=== PATIENT | female | born 1995 | race Caucasian/White ===

== ENCOUNTER → 2019-06-17 | Outpatient (REF) | payer OTHER ==
[2019-06-17 19:07] LABS: APPEARANCE, URINE CLOUDY (CLEAR); BACTERIA, URINE AUTO 3+ (NEGATIVE); BILIRUBIN, URINE AUTO NEGATIVE (NEGATIVE); BLOOD, URINE BLOOD 1+ (NEGATIVE); COLOR, URINE AMBER (YELLOW); GLUCOSE, URINE (UA) AUTO NEGATIVE (NEGATIVE); KETONE, URINE AUTO NEGATIVE (NEGATIVE); LEUKOCYTE ESTERASE, URINE AUTO 2+ (NEGATIVE); MUCUS, URINE SMALL (NEGATIVE); NITRITE, URINE AUTO POSITIVE (NEGATIVE); PROTEIN, URINE AUTO NEGATIVE (NEGATIVE); RBC, URINE AUTO 4 /HPF (0-3); SPECIFIC GRAVITY URINE AUTO 1.016 (1.002-1.035); SQUAMOUS EPITHELIAL CELL UR AU 8 /HPF (0-6); WBC, URINE AUTO 34 /HPF (0-3)
== END ==
LOC: M LAB REF 18:15
PROVIDERS: ATTEND Physician Assistant
DX: N39.0 Urinary tract infection, site not specified (principal)

== ENCOUNTER 2020-09-22 13:29 | Emergency (ER) | payer OTHER ==
[~2020-09-22] VITALS: Ht 162.6 cm; Wt 53.8 kg
[2020-09-22] MEDS ORDERED: IBUPROFEN 600MG TAB PO ONE (14:00)
[2020-09-22 15:10] LABS: BASO # 0.1 10^3/uL (0.0-0.2); BASO % 0.7 % (0.0-1.0); EOS # 0.3 10^3/uL (0.0-0.5); EOS % 2.9 % (0.0-3.0); HEMATOCRIT 41.7 % (36.0-47.0); HEMOGLOBIN 13.8 g/dl (12.0-15.5); LYMPH # 2.5 10^3/uL (1.5-5.0); LYMPH % 24.9 % (24.0-44.0); MEAN CORPUSCULAR HEMOGLOBIN 29.4 pg (27.0-33.0); MEAN CORPUSCULAR HGB CONC 33.1 g/dl (32.0-36.5); MEAN CORPUSCULAR VOLUME 88.9 fl (80.0-96.0); MONO # 0.6 10^3/uL (0.0-0.8); MONO % 6.1 % (2.0-8.0); NEUTROPHILS # 6.4 10^3/uL (1.5-8.5); NEUTROPHILS % 65.1 % (36.0-66.0); PLATELET COUNT, AUTOMATED 313 10^3/uL (150-450); RED BLOOD COUNT 4.69 10^6/uL (4.00-5.40); WHITE BLOOD COUNT 9.9 10^3/uL (4.0-10.0)
[2020-09-22 15:31] LABS: BLOOD UREA NITROGEN 13 MG/DL (7-18); CALCIUM LEVEL 9.2 MG/DL (8.5-10.1); CARBON DIOXIDE LEVEL 25 MEQ/L (21-32); CHLORIDE LEVEL 108 MEQ/L (98-107); GLOMERULAR FILTRATION RATE > 60.0 (>60); GLUCOSE, FASTING 99 MG/DL (70-100); POTASSIUM SERUM 4.3 MEQ/L (3.5-5.1); SODIUM LEVEL 141 MEQ/L (136-145)
--- NOTE | 2020-09-22 15:42 | REP ---
INDICATION: pelvic pain; assess IUD placement. COMPARISON: None. TECHNIQUE: Transabdominal and transvaginal scanning were performed. FINDINGS: Uterine dimensions are normal at 8.0 x 4.5 x 5.2 cm. Endometrial echo is 0.9 cm thick and centrally placed. No free fluid is seen in the cul-de-sac. Visualized bladder philippe are smooth. IUD is in good position in the uterine endometrium. The right ovary has dimensions of 5.7 x 3.4 x 5.1 cm. It's Doppler flow is normal with a resistive index of 0.66. There is a 4.8 x 3.0 by 4.1 cm septated hypoechoic cystic structure in the right ovary. There is a trace of fluid in the cul-de-sac. The left ovary dimensions are normal as well at 3.5 x 1.4 x 2.8 cm. It's Doppler flow was normal with resistive index of 0.63. IMPRESSION: 4.8 x 4.1 x 3.0 cm complex cystic structure right ovary. IUD in good position. Otherwise unremarkable pelvic sonography.. <Electronically signed by Heath Weber > 09/22/20 [id number]
[2020-09-22] MEDS ORDERED: IBUP-1022 PO (15:55)
[2020-09-22 16:09] VITALS: BP 113/58
== END 2020-09-22 16:18 | disposition home or self-care (01) ==
LOC: M ED 13:29
DX: N83.201 Unspecified ovarian cyst, right side (principal); Z88.1 Allergy status to other antibiotic agents; Z97.5 Presence of (intrauterine) contraceptive device

== ENCOUNTER 2021-01-27 02:59 | Emergency (ER) | payer OTHER ==
[~2021-01-27] VITALS: Ht 162.6 cm; Wt 52.0 kg
[~2021-01-27 02:59] MED LIST: IBUP-1022 PO
[2021-01-27 09:52] VITALS: BP 134/69
== END 2021-01-27 09:52 | disposition home or self-care (01) ==
LOC: M ED 02:59
DX: F43.10 Post-traumatic stress disorder, unspecified (principal); Z88.1 Allergy status to other antibiotic agents